=== PATIENT | male | born 1985 | race African-American/Black ===

== ENCOUNTER 2020-05-26 15:38 | Inpatient (IN) | payer OTHER ==
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
[2020-05-26 16:42] VITALS: BMI 20.8
--- NOTE | 2020-05-26 19:17 | HP ---
CIWA Score Nausea/Vomitin-Mild Nausea/No Vomiting Muscle Tremors: 4-Moderate,w/Arms Extend Anxiety: 3 Agitation: 3 Paroxysmal Sweats: 3 Orientation: 0-Oriented Tacttile Disturbances: 0-None Auditory Disturbances: 0-None Visual Disturbances: 0-None Headache: 0-None Present CIWA-Ar Total Score: 14 - Admission Criteria OASAS Guidelines: Admission for Medically Managed Detox: Requires at least one of the followin. CIWA greater than 12 2. Seizures within the past 24 hours 3. Delirium tremens within the past 24 hours 4. Hallucinations within the past 24 hours 5. Acute intervention needed for co occurring medical disorder 6. Acute intervention needed for co occurring psychiatric disorder 7. Severe withdrawal that cannot be handled at a lower level of care (continued vomiting, continued diarrhea, abnormal vital signs) requiring intravenous medication and/or fluids 8. Admission ROS [facility] Chief Complaint: Seeking admission to detox from alcohol Allergies/Adverse Reactions: Allergies Allergy/AdvReac Type Severity Reaction Status Date / Time No Known Allergies Allergy Verified 05/26/20 19:23 History of Present Illness: 34 years old male with a long history of alcohol dependence (since age 19 years) is seeking admission to detox. This is his first detoxification and first time at [facility]. Patient was referred from [facility] where he was treated for alcohol withdrawal seizures. He drinks 2 pints Vodka daily. He has medical history of asthma, denies psych. history and suicidal ideation at this time. He is unemployed, lives with his family and denies any legal issues. 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 Exam Limitations: No Limitations - Ebola screening Have you traveled outside of the country in the last 21 days: No Have you had contact with anyone from an Ebola affected area: No Have you been sick,other than usual withdrawal symptoms: No Do you have a fever: No - Review of Systems Constitutional: Chills, Loss of Appetite, Changes in sleep EENT: reports: No Symptoms Reported Respiratory: reports: No Symptoms reported Cardiac: reports: No Symptoms Reported GI: reports: Nausea, Poor Appetite, Abdominal cramping : reports: No Symptoms Reported Musculoskeletal: reports: No Symptoms Reported Integumentary: reports: Dryness, Flushing Neuro: reports: Tremors Endocrine: reports: No Symptoms Reported Hematology: reports: No Symptoms Reported Psychiatric: reports: Mood/Affect Appropiate, Orientated x3 Other Systems: Reviewed and Negative Patient History - Patient Medical History Hx Anemia: No Hx Asthma: Yes (Albuterol) Hx Chronic Obstructive Pulmonary Disease (COPD): No Hx Cancer: No Hx Cardiac Disorders: No Hx Congestive Heart Failure: No Hx Hypertension: No Hx Hypercholesterolemia: No Hx Pacemaker: No HX Cerebrovascular Accident: No Hx Seizures: Yes (Alcohol related seizures) Hx Diabetes: No Hx Gastrointestinal Disorders: No Hx Liver Disease: No Hx Genitourinary Disorders: No Hx Sexually Transmitted Disorders: No Hx Renal Disease (ESRD): No Hx Thyroid Disease: No Hx Human Immunodeficiency Virus (HIV): No (Negative 2020) Hx Hepatitis C: No Hx Depression: No Hx Suicide Attempt: No (Denies suicidal ideation at this time) Hx Bipolar Disorder: No Hx Schizophrenia: No - Patient Surgical History Past Surgical History: No - PPD History Previous Implant?: Yes Documented Results: Negative w/o proof Implanted On Prior [facility] Admission?: No PPD to be Administered?: Yes - Reproductive History Patient is a Female of Child Bearing Age (11 -55 yrs old): No (Male) - Smoking Cessation Smoking history: Former smoker Have you smoked in the past 12 months: No Hx Chewing Tobacco Use: No Initiated information on smoking cessation: No - Substance & Tx. History Hx Alcohol Use: Yes Hx Substance Use: No Substance Use Type: Alcohol Hx Substance Use Treatment: No - Substances abused Alcohol Substance route: Oral Frequency: Daily Amount used: 2 pints Vodka Age of first use: 19 Date of last use: 05/25/20 Admission Physical Exam BHS - Vital Signs Vital Signs: Vital Signs - 24 hr 05/26/20 16:41 Temperature 97.9 F Pulse Rate 76 Respiratory 18 Rate Blood Pressure 165/101 H - Physical General Appearance: Yes: Moderate Distress, Tremorous, Anxious HEENTM: Yes: Within Normal Limits Respiratory: Yes: Lungs Clear, Normal Breath Sounds, No Respiratory Distress Neck: Yes: Within Normal Limits Breast: Yes: Breast Exam Deferred Cardiology: Yes: Regular Rhythm, Regular Rate, Other (Elevated B/P without diagnosis of hypertension- B/P165/101) Abdominal: Yes: Normal Bowel Sounds Genitourinary: Yes: Within Normal Limits Back: Yes: Normal Inspection Musculoskeletal: Yes: Within Normal Limits Extremities: Yes: Tremors Neurological: Yes: Within Normal Limits, Alert, Normal Mood/Affect Integumentary: Yes: Within Normal Limits Lymphatic: Yes: Within Normal Limits - Diagnostic (1) Alcohol dependence, uncomplicated Current Visit: Yes Status: Acute (2) Alcohol related seizure Current Visit: Yes Status: Chronic (3) Asthma Current Visit: Yes Status: Chronic Qualifiers: Asthma severity: mild Asthma persistence: intermittent (4) Elevated blood pressure reading without diagnosis of hypertension Current Visit: Yes Status: Acute Cleared for Admission S - Detox or Rehab [facility] Level of Care: Medically Managed Detox Regimen/Protocol: Librium Claeared for Rehab Admission: No Breathalyzer - Breathalyzer Breathalyzer: 0.052 Urine Drug Screen - Test Device Lot number: [id number] Expiration date: 12/04/21 - Control Is test valid?: Yes - Results Drug screen NEGATIVE: No Urine drug screen results: BZO-Benzodiazepines Inpatient Rehab Admission - Rehab Decision to Admit Inpatient rehab admission?: No
[2020-05-26] MEDS ORDERED: MENTHOL/PHENOL 1 EACH UD MM PRN (19:40)
[2020-05-26] MEDS ORDERED: BISMUTH SUBSALICYLATE 524 MG/30 ML UD PO PRN (19:40)
[2020-05-26] MEDS ORDERED: ACETAMINOPHEN 325 MG TABLET (FP) PO PRN ×2 (19:40)
[2020-05-26] MEDS ORDERED: chlordiazePOXIDE HCL 25 MG CAPSULE PO PRN (19:40)
[2020-05-26] MEDS ORDERED: IBUPROFEN 400 MG TABLET (FP) PO PRN (19:40)
[2020-05-26] MEDS ORDERED: MAGNESIUM HYDROX 2400MG/30ML ORAL SUSPENSION 30 ML CUP PO PRN (19:40)
[2020-05-26] MEDS ORDERED: MAG HYDROX/AL HYDROX/SIMETH 30 ML UNIT-DOSE CUP PO PRN (19:40)
[2020-05-26] MEDS ORDERED: hydrOXYzine PAMOATE 25 MG CAPSULE (FP) PO PRN (19:40)
[2020-05-26] MEDS ORDERED: METHOCARBAMOL 500 MG TABLET PO PRN (19:40)
[2020-05-26] MEDS ORDERED: MAGNESIUM CITRATE 300 ML BOTTLE PO PRN (19:40)
[2020-05-26] MEDS ORDERED: ONDANSETRON *ODT* 4 MG TABLET SL PRN (19:40)
--- OUTSIDE RECORDS SUMMARY | 2020-05-26 21:17 | XMS ---
:1985 Author Organization [facility] Support Name Relationship Address Phone UE Unavailable Unavailable Unavailable [employer] [address] [place] [address] [id number] [phone] [place] [address] Re-disclosure Warning The records that you are about to access may contain information from federally- assisted alcohol or drug abuse programs. If such information is present, then the following federally mandated warning applies: This information has been disclosed to you from records protected by federal confidentiality rules (42 CFR part 2). The federal rules prohibit you from making any further disclosure of this information unless further disclosure is expressly permitted by the written consent of the person to whom it pertains or as otherwise permitted by 42 CFR part 2. A general authorization for the release of medical or other information is NOT sufficient for this purpose. The Federal rules restrict any use of the information to criminally investigate or prosecute any alcohol or drug abuse patient.The records that you are about to access may contain highly sensitive health information, the redisclosure of which is protected by Article 27-F of the [facility] Public Health law. If you continue you may haveaccess to information: Regarding HIV / AIDS; Provided by facilities licensed or operated by the [facility] Office of Mental Health; or Provided by the [facility] Office for People With Developmental Disabilities. If such information is present, then the following [facility] mandated warning applies: This information has been disclosed to you from confidential records which are protected by state law. State law prohibits you from making any further disclosure of this information without the specific written consent of the person to whom it pertains, or as otherwise permitted by law. Any unauthorized further disclosure in violation of state law may result in a fine or intermediate sentence or both. A general authorization for the release of medical or other information is NOT sufficient authorization for further disclosure. Insurance Providers Payer name Policy type Policy ID Covered Covered alliance party's Policy P luiza / Coverage alliance party ID relationship to [employer] type rutledge BEACON [id number] SP [id number] JOHNNY
[2020-05-26] MEDS: THIAMINE HCL 100 MG TABLET (FP) PO SCH (22:15)
[2020-05-26] MEDS: chlordiazePOXIDE HCL 25 MG CAPSULE PO SCH (22:16)
[2020-05-26] MEDS: MELATONIN 5 MG TABLETS PO SCH (22:16)
[2020-05-27] MEDS: chlordiazePOXIDE HCL 25 MG CAPSULE PO SCH ×4 (05:40→22:03)
[2020-05-27] MEDS ORDERED: FOLIC ACID 1 MG TABLET (FP) PO SCH (10:00)
[2020-05-27] MEDS: PRENATAL VITAMINS W/ FOLIC ACID TABLET (FP) PO SCH (10:01)
--- NOTE | 2020-05-27 10:14 | EKG ---
Test Reason : Blood Pressure : / mmHG Vent. Rate : 068 BPM Atrial Rate : 068 BPM P-R Int : 134 ms QRS Dur : 076 ms QT Int : 438 ms P-R-T Axes : 037 070 056 degrees QTc Int : 465 ms NORMAL SINUS RHYTHM WITH SINUS ARRHYTHMIA NORMAL ECG NO PREVIOUS ECGS AVAILABLE Confirmed by MD Faviola, Andrea ([id number]) on 05/27/2020 10:14:04 AM Referred By: Confirmed By:Andrea Salmeron MD
[2020-05-27 10:49] LABS: HEMATOCRIT 41.7 % (35.4-49); MCH 32.8 pg (25.7-33.7); MCHC 33.6 g/dl (32.0-35.9); MEAN CELL VOLUME 97.7 fl (80-96); MEAN PLT VOLUME 8.2 fl (7.5-11.1); PLATELET COUNT 271 K/MM3 (134-434); RBC 4.27 M/mm3 (4.00-5.60); RDW 12.5 % (11.9-15.9)
[2020-05-27 10:55] LABS: ALBUMIN 3.7 g/dl (3.4-5.0); BLOOD UREA NITROGEN 12.1 mg/dL (7-18); CALCIUM 9.2 mg/dL (8.5-10.1); CREATININE 0.7 mg/dL (0.55-1.3); POTASSIUM 3.9 mmol/L (3.5-5.1); TOT PROT 7.1 g/dl (6.4-8.2)
--- NOTE | 2020-05-27 12:14 | PN ---
S CIWA - CIWA Score Nausea/Vomitin-No Nausea/No Vomiting Muscle Tremors: 2 Anxiety: 2 Agitation: 2 Paroxysmal Sweats: 2 Orientation: 0-Oriented Tacttile Disturbances: 0-None Auditory Disturbances: 0-None Visual Disturbances: 0-None Headache: 0-None Present CIWA-Ar Total Score: 8 BHS Progress Note (SOAP) Subjective: restless sweats shakes interrupted sleep Objective: 05/27/20 12:13 Vital Signs Temp 98.6 F 05/27/20 05:30 Pulse 76 05/27/20 05:30 Resp 20 05/27/20 05:30 BP 157/101 H 05/27/20 05:30 Pulse Ox 95 05/27/20 05:30 Laboratory Tests 05/26/20 05/27/20 05/27/20 07:00 07:00 07:15 WBC 5.0 RBC 4.27 Hgb 14.0 Hct 41.7 MCV 97.7 H MCH 32.8 MCHC 33.6 RDW 12.5 Plt Count 271 MPV 8.2 Sodium 139 Potassium 3.9 Chloride 102 Carbon Dioxide 28 Anion Gap 8 BUN 12.1 Creatinine 0.7 Est GFR (CKD-EPI)AfAm 144.72 Est GFR (CKD-EPI)NonAf 124.87 Random Glucose 78 Calcium 9.2 Total Bilirubin 1.0 AST 69 H ALT 47 Alkaline Phosphatase 113 Total Protein 7.1 Albumin 3.7 Syphilis Serology Non-reactive labs noted aaox3 ambulating no acute distress Assessment: 05/27/20 12:14 withdrawals Plan: continue detox increase fluids
[2020-05-27] MEDS: THIAMINE HCL 100 MG TABLET (FP) PO SCH (22:03)
[2020-05-27] MEDS: MELATONIN 5 MG TABLETS PO SCH (22:04)
[2020-05-28] MEDS: chlordiazePOXIDE HCL 25 MG CAPSULE PO SCH ×4 (05:44→22:08)
[2020-05-28] MEDS: PRENATAL VITAMINS W/ FOLIC ACID TABLET (FP) PO SCH (10:12)
--- NOTE | 2020-05-28 12:25 | PN ---
S CIWA - CIWA Score Nausea/Vomitin-No Nausea/No Vomiting Muscle Tremors: 2 Anxiety: 1-Mildly Anxious Agitation: 2 Paroxysmal Sweats: 1-Minimal Palms Moist Orientation: 0-Oriented Tacttile Disturbances: 0-None Auditory Disturbances: 0-None Visual Disturbances: 0-None Headache: 0-None Present CIWA-Ar Total Score: 6 BHS Progress Note (SOAP) Subjective: sweats restless body aches Objective: 05/28/20 12:23 Vital Signs Temperature 97.8 F 05/28/20 09:01 Pulse Rate 87 05/28/20 09:01 Respiratory Rate 18 05/28/20 09:01 Blood Pressure 158/94 05/28/20 09:01 O2 Sat by Pulse Oximetry (%) 96 05/28/20 09:01 Laboratory Tests 05/26/20 05/26/20 05/27/20 07:00 20:30 07:00 WBC RBC Hgb Hct MCV MCH MCHC RDW Plt Count MPV Sodium 139 Potassium 3.9 Chloride 102 Carbon Dioxide 28 Anion Gap 8 BUN 12.1 Creatinine 0.7 Est GFR (CKD-EPI)AfAm 144.72 Est GFR (CKD-EPI)NonAf 124.87 Random Glucose 78 Calcium 9.2 Total Bilirubin 1.0 AST 69 H ALT 47 Alkaline Phosphatase 113 Total Protein 7.1 Albumin 3.7 Syphilis Serology Non-reactive COVID-19 (STEPHANIE) Not detected 05/27/20 07:15 WBC 5.0 RBC 4.27 Hgb 14.0 Hct 41.7 MCV 97.7 H MCH 32.8 MCHC 33.6 RDW 12.5 Plt Count 271 MPV 8.2 Sodium Potassium Chloride Carbon Dioxide Anion Gap BUN Creatinine Est GFR (CKD-EPI)AfAm Est GFR (CKD-EPI)NonAf Random Glucose Calcium Total Bilirubin AST ALT Alkaline Phosphatase Total Protein Albumin Syphilis Serology COVID-19 (STEPHANIE) labs noted aaox3 ambulating no acute distress moderately high BP noted; pt denies h/o HTN clonidine 0.1mg ordered Assessment: 05/28/20 12:24 withdrawals Plan: continue detox clonidine 0.1mg bid with parameters ordered
[2020-05-28] MEDS: cloNIDine HCL 0.1 MG TABLET PO SCH ×2 (12:57→22:09)
[2020-05-28] MEDS: MELATONIN 5 MG TABLETS PO SCH (22:09)
[2020-05-28] MEDS: THIAMINE HCL 100 MG TABLET (FP) PO SCH (22:09)
[2020-05-29] MEDS ORDERED: chlordiazePOXIDE HCL 10 MG CAPSULE PO PRN
[2020-05-29] MEDS: chlordiazePOXIDE HCL 10 MG CAPSULE PO SCH ×4 (05:35→22:07)
[2020-05-29] MEDS: ALBUTEROL SO4 HFA INHALER IH PRN ×2 (06:03→18:00)
[2020-05-29] MEDS: PRENATAL VITAMINS W/ FOLIC ACID TABLET (FP) PO SCH (10:04)
[2020-05-29] MEDS: cloNIDine HCL 0.1 MG TABLET PO SCH ×2 (10:04→22:07)
--- NOTE | 2020-05-29 12:43 | PN ---
S CIWA - CIWA Score Nausea/Vomitin-No Nausea/No Vomiting Muscle Tremors: 2 Anxiety: 1-Mildly Anxious Agitation: 2 Paroxysmal Sweats: 1-Minimal Palms Moist Orientation: 0-Oriented Tacttile Disturbances: 0-None Auditory Disturbances: 0-None Visual Disturbances: 0-None Headache: 0-None Present CIWA-Ar Total Score: 6 BHS Progress Note (SOAP) Subjective: sweats body aches Objective: 05/29/20 12:54 Vital Signs Temperature 98.0 F 05/29/20 08:34 Pulse Rate 79 05/29/20 08:34 Respiratory Rate 18 05/29/20 08:34 Blood Pressure 129/76 05/29/20 08:34 O2 Sat by Pulse Oximetry (%) 99 05/29/20 05:25 aaox3 ambulating no acute distress Assessment: 05/29/20 12:54 withdrawals Plan: continue detox
[2020-05-29] MEDS: THIAMINE HCL 100 MG TABLET (FP) PO SCH (22:07)
[2020-05-29] MEDS: MELATONIN 5 MG TABLETS PO SCH (22:08)
[2020-05-30] MEDS: chlordiazePOXIDE HCL 10 MG CAPSULE PO SCH ×2 (05:44→17:49)
[2020-05-30] MEDS: PRENATAL VITAMINS W/ FOLIC ACID TABLET (FP) PO SCH (10:06)
[2020-05-30] MEDS: cloNIDine HCL 0.1 MG TABLET PO SCH ×2 (10:06→22:20)
--- NOTE | 2020-05-30 10:44 | PN ---
S CIWA - CIWA Score Nausea/Vomitin-No Nausea/No Vomiting Muscle Tremors: 2 Anxiety: 1-Mildly Anxious Agitation: 1-Slight > Activity Paroxysmal Sweats: No Perspiration Orientation: 0-Oriented Tacttile Disturbances: 0-None Auditory Disturbances: 0-None Visual Disturbances: 0-None Headache: 0-None Present CIWA-Ar Total Score: 4 BHS Progress Note (SOAP) Subjective: feeling better restless Objective: 05/30/20 10:43 Vital Signs Temperature 97.5 F L 05/30/20 08:38 Pulse Rate 63 05/30/20 08:38 Respiratory Rate 16 05/30/20 08:38 Blood Pressure 124/72 05/30/20 08:38 O2 Sat by Pulse Oximetry (%) 100 05/30/20 08:38 Laboratory Tests 05/26/20 05/26/20 05/27/20 07:00 20:30 07:00 WBC RBC Hgb Hct MCV MCH MCHC RDW Plt Count MPV Sodium 139 Potassium 3.9 Chloride 102 Carbon Dioxide 28 Anion Gap 8 BUN 12.1 Creatinine 0.7 Est GFR (CKD-EPI)AfAm 144.72 Est GFR (CKD-EPI)NonAf 124.87 Random Glucose 78 Calcium 9.2 Total Bilirubin 1.0 AST 69 H ALT 47 Alkaline Phosphatase 113 Total Protein 7.1 Albumin 3.7 Syphilis Serology Non-reactive COVID-19 (STEPHANIE) Not detected 05/27/20 07:15 WBC 5.0 RBC 4.27 Hgb 14.0 Hct 41.7 MCV 97.7 H MCH 32.8 MCHC 33.6 RDW 12.5 Plt Count 271 MPV 8.2 Sodium Potassium Chloride Carbon Dioxide Anion Gap BUN Creatinine Est GFR (CKD-EPI)AfAm Est GFR (CKD-EPI)NonAf Random Glucose Calcium Total Bilirubin AST ALT Alkaline Phosphatase Total Protein Albumin Syphilis Serology COVID-19 (STEPHANIE) aaox3 ambulating no acute distress Assessment: 05/30/20 10:43 withdrawals Plan: continue detox d/c in am
[2020-05-30] MEDS: ALBUTEROL SO4 HFA INHALER IH PRN (13:34)
[2020-05-30] MEDS: MELATONIN 5 MG TABLETS PO SCH (22:20)
[2020-05-30] MEDS: THIAMINE HCL 100 MG TABLET (FP) PO SCH (22:20)
[2020-05-31] MEDS: ALBUTEROL SO4 HFA INHALER IH PRN (02:01)
[2020-05-31] MEDS ORDERED: chlordiazePOXIDE HCL 10 MG CAPSULE PO ONE (05:00)
[2020-05-31 11:38] VITALS: BP 117/69; PULSE 63; TEMP 97.3
--- NOTE | 2020-05-31 17:34 | DS ---
[facility] Detox Discharge Summary Admission Date: 05/26/20 Discharge Date: 05/31/20 - History Present History: Alcohol Dependence Additional Comments: Patient returning home and will attend local NA/ AA / Outpatient Support Group Program that he elects to seek out on his own. Patient denies known history of Hypertension. Patient's Blood Pressure stable at time of Discharge form Detox Unit. Patient advised to follow-up with [facility] ([place], [place]) after Discharge from Detox for general medical assessment and for elevated blood pressure noted on Detox admission laboratory assessment. Patient verbalized understanding of recommendation. Patient was Discharged from Detox Unit in stable medical condition. Pertinent Past History: Asthma, Elevated Blood Pressure Reading without Diagnosis of Hypertension, History of Seizures. - Physical Exam Results Vital Signs: Vital Signs Temperature 97.3 F L 05/31/20 08:41 Pulse Rate 63 05/31/20 08:41 Respiratory Rate 18 05/31/20 08:41 Blood Pressure 117/69 05/31/20 08:41 O2 Sat by Pulse Oximetry (%) 100 05/31/20 08:41 Pertinent Admission Physical Exam Findings: WITHDRAWAL SYMPTOMS. Laboratory Tests 05/26/20 05/26/20 05/27/20 07:00 20:30 07:00 WBC RBC Hgb Hct MCV MCH MCHC RDW Plt Count MPV Sodium 139 Potassium 3.9 Chloride 102 Carbon Dioxide 28 Anion Gap 8 BUN 12.1 Creatinine 0.7 Est GFR (CKD-EPI)AfAm 144.72 Est GFR (CKD-EPI)NonAf 124.87 Random Glucose 78 Calcium 9.2 Total Bilirubin 1.0 AST 69 H ALT 47 Alkaline Phosphatase 113 Total Protein 7.1 Albumin 3.7 Syphilis Serology Non-reactive COVID-19 (STEPHANIE) Not detected 05/27/20 07:15 WBC 5.0 RBC 4.27 Hgb 14.0 Hct 41.7 MCV 97.7 H MCH 32.8 MCHC 33.6 RDW 12.5 Plt Count 271 MPV 8.2 Sodium Potassium Chloride Carbon Dioxide Anion Gap BUN Creatinine Est GFR (CKD-EPI)AfAm Est GFR (CKD-EPI)NonAf Random Glucose Calcium Total Bilirubin AST ALT Alkaline Phosphatase Total Protein Albumin Syphilis Serology COVID-19 (STEPHANIE) Lab Results noted. - Treatment Hospital Course: Detox Protocol Followed, Detoxed Safely, Responded well, Discharged Condition Good Patient has Accepted a Rehab Referral to: Patient returning home, will seek out local support group on his own. - Medication Discharge Medications: Ambulatory Orders Albuterol Sulfate Inhaler - [Ventolin Hfa Inhaler -] 2 inh PO Q6H 05/26/20 - Diagnosis (1) Alcohol dependence, uncomplicated Status: Acute (2) Elevated blood pressure reading without diagnosis of hypertension Status: Acute (3) Alcohol related seizure Status: Chronic (4) Asthma Status: Chronic Qualifiers: Asthma severity: mild Asthma persistence: intermittent Asthma complication type: uncomplicated Qualified Code(s): J45.20 - Mild intermittent asthma, uncomplicated - AMA Did Patient Leave Against Medical Advice: No
== END 2020-05-31 10:11 | disposition home or self-care (01) | DRG 775 ==
LOC: YASAS 15:38 → Y6N 20:18
PROVIDERS: ADMIT Allergy & Immunology; ATTEND Allergy & Immunology
PROC: HZ2ZZZZ Detoxification Services for Substance Abuse Treatment (ICD-10-PCS; principal; 2020-05-26)
DX: F10.230 Alcohol dependence with withdrawal, uncomplicated (principal); F17.211 Nicotine dependence, cigarettes, in remission; J45.20 Mild intermittent asthma, uncomplicated; G40.509 Epileptic seizures related to external causes, not intractable, without status epilepticus; R03.0 Elevated blood-pressure reading, without diagnosis of hypertension; Z56.0 Unemployment, unspecified
CPT/HCPCS: 36415; 80053; 85027; 86780; 93005; 93010; J0735; U0003

== ENCOUNTER 2021-04-24 12:24 | Inpatient (IN) | payer OTHER ==
[2021-04-24 13:33] VITALS: BMI 20.7
[2021-04-24] MEDS ORDERED: ACETAMINOPHEN 325 MG TABLET (FP) PO PRN ×2 (15:32)
[2021-04-24] MEDS ORDERED: MAG HYDROX/AL HYDROX/SIMETH 30 ML UNIT-DOSE CUP PO PRN (15:32)
[2021-04-24] MEDS ORDERED: chlordiazePOXIDE HCL 25 MG CAPSULE PO PRN (15:32)
[2021-04-24] MEDS ORDERED: MAGNESIUM CITRATE 300 ML BOTTLE PO PRN (15:32)
[2021-04-24] MEDS ORDERED: ONDANSETRON *ODT* 4 MG TABLET SL PRN (15:32)
[2021-04-24] MEDS ORDERED: NICOTINE 10 MG CARTRIDGE (INHALER) IH PRN (15:32)
[2021-04-24] MEDS ORDERED: MAGNESIUM HYDROX 2400MG/30ML ORAL SUSPENSION 30 ML CUP PO PRN (15:32)
[2021-04-24] MEDS ORDERED: MENTHOL/PHENOL 1 EACH UD MM PRN (15:32)
[2021-04-24] MEDS ORDERED: BISMUTH SUBSALICYLATE 262 MG/15 ML BTL PO PRN (15:32)
[2021-04-24] MEDS ORDERED: IBUPROFEN 400 MG TABLET (FP) PO PRN (15:32)
[2021-04-24] MEDS ORDERED: LORazepam 1 MG TABLET PO PRN (15:44)
[2021-04-24] MEDS ORDERED: ALBUTEROL SO4 HFA INHALER IH SCH (15:45)
[2021-04-24] MEDS ORDERED: chlordiazePOXIDE HCL 25 MG CAPSULE PO SCH (17:00)
[2021-04-24] MEDS: LORazepam 2 MG TABLET PO SCH ×2 (18:32→22:04)
[2021-04-24] MEDS: MELATONIN 5 MG TABLETS PO SCH (22:04)
[2021-04-24] MEDS: THIAMINE HCL 100 MG TABLET (FP) PO SCH (22:04)
[2021-04-25] MEDS: ALBUTEROL SO4 HFA INHALER IH PRN ×2 (03:16→18:04)
[2021-04-25] MEDS: LORazepam 2 MG TABLET PO SCH ×4 (06:28→22:13)
[2021-04-25] MEDS: PRENATAL VITAMINS W/ FOLIC ACID TABLET (FP) PO SCH (10:22)
[2021-04-25 13:19] LABS: HEMATOCRIT 41.1 % (35.4-49); MCH 32.7 pg (25.7-33.7); MCHC 34.2 g/dl (32.0-35.9); MEAN CELL VOLUME 95.5 fl (80-96); MEAN PLT VOLUME 8.1 fl (7.5-11.1); PLATELET COUNT 316 10^3/uL (134-434); RDW 12.6 % (11.9-15.9); WHITE BLOOD COUNT 5.5 K/mm3 (4.0-10.0)
[2021-04-25 13:20] LABS: CALCIUM 9.3 mg/dL (8.5-10.1)
[2021-04-25 13:21] LABS: ALBUMIN 4.2 g/dl (3.4-5.0); BLOOD UREA NITROGEN 10.5 mg/dL (7-18)
[2021-04-25 13:25] LABS: BILIRUBIN,TOTAL 0.9 mg/dL (0.2-1); TOT PROT 8.6 g/dl (6.4-8.2)
[2021-04-25] MEDS: MELATONIN 5 MG TABLETS PO SCH (22:14)
[2021-04-25] MEDS: THIAMINE HCL 100 MG TABLET (FP) PO SCH (22:14)
[2021-04-25] MEDS: METHOCARBAMOL 500 MG TABLET PO PRN (22:14)
[2021-04-26] MEDS ORDERED: chlordiazePOXIDE HCL 25 MG CAPSULE PO SCH (05:00)
[2021-04-26] MEDS: LORazepam 1 MG TABLET PO SCH ×4 (05:55→22:16)
[2021-04-26] MEDS: PRENATAL VITAMINS W/ FOLIC ACID TABLET (FP) PO SCH (10:16)
[2021-04-26] MEDS: cloNIDine HCL 0.1 MG TABLET PO PRN ×2 (17:24→22:17)
[2021-04-26] MEDS: THIAMINE HCL 100 MG TABLET (FP) PO SCH (22:16)
[2021-04-26] MEDS: MELATONIN 5 MG TABLETS PO SCH (22:16)
[2021-04-27] MEDS ORDERED: chlordiazePOXIDE HCL 10 MG CAPSULE PO PRN
[2021-04-27] MEDS ORDERED: LORazepam 0.5 MG TABLET PO PRN
[2021-04-27] MEDS ORDERED: chlordiazePOXIDE HCL 10 MG CAPSULE PO SCH (05:00)
[2021-04-27] MEDS: LORazepam 0.5 MG TABLET PO SCH ×4 (05:38→22:12)
[2021-04-27] MEDS: PRENATAL VITAMINS W/ FOLIC ACID TABLET (FP) PO SCH (10:05)
[2021-04-27 14:04] LABS: EPI CELLS 3 /uL (0-25.1); HYALINE CASTS 2 /uL (0-3.1); URINE APPEARANCE CLEAR; URINE BACTERIA 53 /uL (0-1359); URINE BILIRUBIN NEGATIVE (NEGATIVE); URINE COLOR DK YELLOW; URINE GLUCOSE (UA) NEGATIVE (NEGATIVE); URINE KETONE TRACE (NEGATIVE); URINE LEUK ESTERASE TRACE (NEGATIVE); URINE NITRITE NEGATIVE (NEGATIVE); URINE PROTEIN NEGATIVE (NEGATIVE); URINE RBC 3 /uL (0-23.9); URINE WBC 14 /uL (0-25.8)
[2021-04-27] MEDS: THIAMINE HCL 100 MG TABLET (FP) PO SCH (22:11)
[2021-04-27] MEDS: cloNIDine HCL 0.1 MG TABLET PO PRN (22:12)
[2021-04-27] MEDS: MELATONIN 5 MG TABLETS PO SCH (22:12)
[2021-04-28] MEDS: METHOCARBAMOL 500 MG TABLET PO PRN (01:54)
[2021-04-28] MEDS ORDERED: LORazepam 0.5 MG TABLET PO ONE (05:00)
[2021-04-28] MEDS ORDERED: chlordiazePOXIDE HCL 10 MG CAPSULE PO SCH (05:00)
[2021-04-28] MEDS: ALBUTEROL SO4 HFA INHALER IH PRN (09:24)
[2021-04-28 10:00] VITALS: BP 121/85; PULSE 89; TEMP 96.6
[2021-04-28] MEDS: PRENATAL VITAMINS W/ FOLIC ACID TABLET (FP) PO SCH (10:22)
[2021-04-29] MEDS ORDERED: chlordiazePOXIDE HCL 10 MG CAPSULE PO ONE (05:00)
== END 2021-04-28 11:00 | disposition home or self-care (01) | DRG 775 ==
LOC: YASAS 12:24 → Y3N 17:07
PROVIDERS: ADMIT Allergy & Immunology; ATTEND Allergy & Immunology
PROC: HZ2ZZZZ Detoxification Services for Substance Abuse Treatment (ICD-10-PCS; principal; 2021-04-24)
DX: F10.230 Alcohol dependence with withdrawal, uncomplicated (principal); F17.210 Nicotine dependence, cigarettes, uncomplicated; J45.20 Mild intermittent asthma, uncomplicated; R56.9 Unspecified convulsions; R74.01 Elevation of levels of liver transaminase levels; R03.0 Elevated blood-pressure reading, without diagnosis of hypertension
CPT/HCPCS: 36415; 80053; 81003; 85027; 86780; 93005; 93010; C9803; J0735; U0003; U0005

== ENCOUNTER 2022-01-21 11:40 | Inpatient (IN) | payer OTHER ==
[2022-01-21 12:07] VITALS: BMI 19.6
[2022-01-21] MEDS ORDERED: BISMUTH SUBSALICYLATE 524 MG/30 ML PO PRN (12:51)
[2022-01-21] MEDS ORDERED: LORazepam 1 MG TABLET PO PRN (12:51)
[2022-01-21] MEDS ORDERED: ACETAMINOPHEN 325 MG TABLET (FP) PO PRN ×2 (12:51)
[2022-01-21] MEDS ORDERED: LOPERAMIDE HCL 2 MG CAPSULE PO PRN (12:51)
[2022-01-21] MEDS ORDERED: IBUPROFEN 400 MG TABLET (FP) PO PRN (12:51)
[2022-01-21] MEDS ORDERED: BENZOCAINE/MENTHOL (CHLORASEPTIC ) LOZENGE MM PRN (12:51)
[2022-01-21] MEDS ORDERED: DICYCLOMINE HCL 10 MG CAPSULE PO PRN (12:51)
[2022-01-21] MEDS ORDERED: ONDANSETRON *ODT* 4 MG TABLET SL PRN (12:51)
[2022-01-21] MEDS ORDERED: NICOTINE 10 MG CARTRIDGE (INHALER) IH PRN (12:51)
[2022-01-21] MEDS ORDERED: MAGNESIUM HYDROX 2400MG/30ML ORAL SUSPENSION 30 ML CUP PO PRN (12:51)
[2022-01-21] MEDS ORDERED: MAG HYDROX/AL HYDROX/SIMETH 30 ML UNIT-DOSE CUP PO PRN (12:51)
[2022-01-21] MEDS ORDERED: MAGNESIUM CITRATE 300 ML BOTTLE PO PRN (12:51)
[2022-01-21] MEDS: hydrOXYzine PAMOATE 25 MG CAPSULE (FP) PO SCH ×3 (14:12→23:17)
[2022-01-21] MEDS: PRENATAL VITAMINS W/ FOLIC ACID TABLET (FP) PO SCH (14:13)
[2022-01-21] MEDS: LORazepam 2 MG TABLET PO SCH ×2 (18:08→23:19)
[2022-01-21] MEDS: THIAMINE HCL 100 MG TABLET (FP) PO SCH (23:17)
[2022-01-21] MEDS: MELATONIN 5 MG TABLETS PO SCH (23:17)
[2022-01-22] MEDS: hydrOXYzine PAMOATE 25 MG CAPSULE (FP) PO SCH ×5 (05:33→22:26)
[2022-01-22] MEDS: LORazepam 2 MG TABLET PO SCH ×4 (05:33→22:26)
[2022-01-22] MEDS: PRENATAL VITAMINS W/ FOLIC ACID TABLET (FP) PO SCH (10:21)
[2022-01-22 10:23] LABS: HEMATOCRIT 40.9 % (35.4-49); HEMOGLOBIN 13.6 GM/dL (11.7-16.9); MCH 31.8 pg (25.7-33.7); MCHC 33.1 g/dl (32.0-35.9); MEAN CELL VOLUME 96.1 fl (80-96); MEAN PLT VOLUME 8.6 fl (7.5-11.1); PLATELET COUNT 192 10^3/uL (134-434); RBC 4.26 M/mm3 (4.00-5.60); RDW 12.7 % (11.9-15.9); WHITE BLOOD COUNT 3.7 K/mm3 (4.0-10.0)
[2022-01-22 10:29] LABS: CALCIUM 9.4 mg/dL (8.5-10.1)
[2022-01-22 10:30] LABS: ALBUMIN 3.6 g/dl (3.4-5.0); BLOOD UREA NITROGEN 11.9 mg/dL (7-18)
[2022-01-22 10:32] LABS: CREATININE 0.7 mg/dL (0.55-1.3)
[2022-01-22 10:33] LABS: TOT PROT 6.5 g/dl (6.4-8.2)
[2022-01-22] MEDS: THIAMINE HCL 100 MG TABLET (FP) PO SCH (22:26)
[2022-01-22] MEDS: METHOCARBAMOL 500 MG TABLET PO PRN (22:26)
[2022-01-22] MEDS: MELATONIN 5 MG TABLETS PO SCH (22:26)
[2022-01-23] MEDS: hydrOXYzine PAMOATE 25 MG CAPSULE (FP) PO SCH ×5 (05:40→23:13)
[2022-01-23] MEDS: LORazepam 1 MG TABLET PO SCH ×4 (05:40→23:13)
[2022-01-23] MEDS: PRENATAL VITAMINS W/ FOLIC ACID TABLET (FP) PO SCH (10:37)
[2022-01-23] MEDS: METHOCARBAMOL 500 MG TABLET PO PRN (10:38)
[2022-01-23] MEDS: THIAMINE HCL 100 MG TABLET (FP) PO SCH (23:13)
[2022-01-23] MEDS: MELATONIN 5 MG TABLETS PO SCH (23:13)
[2022-01-24] MEDS ORDERED: LORazepam 0.5 MG TABLET PO PRN
[2022-01-24] MEDS: ALBUTEROL SO4 HFA INHALER IH PRN ×3 (03:54→22:42)
[2022-01-24] MEDS: hydrOXYzine PAMOATE 25 MG CAPSULE (FP) PO SCH ×5 (06:26→22:38)
[2022-01-24] MEDS: LORazepam 0.5 MG TABLET PO SCH ×4 (06:26→22:38)
[2022-01-24] MEDS: METHOCARBAMOL 500 MG TABLET PO PRN (10:41)
[2022-01-24] MEDS: PRENATAL VITAMINS W/ FOLIC ACID TABLET (FP) PO SCH (10:41)
[2022-01-24] MEDS: THIAMINE HCL 100 MG TABLET (FP) PO SCH (22:38)
[2022-01-24] MEDS: MELATONIN 5 MG TABLETS PO SCH (22:39)
[2022-01-25] MEDS ORDERED: LORazepam 0.5 MG TABLET PO ONE (05:00)
[2022-01-25] MEDS: hydrOXYzine PAMOATE 25 MG CAPSULE (FP) PO SCH (06:04)
[2022-01-25 09:22] VITALS: BP 125/77; PULSE 76; TEMP 97.3
== END 2022-01-25 09:40 | disposition home or self-care (01) | DRG 775 ==
LOC: YASAS 11:40 → Y6N 13:18
PROVIDERS: ADMIT Allergy & Immunology; ATTEND Surgery
PROC: HZ2ZZZZ Detoxification Services for Substance Abuse Treatment (ICD-10-PCS; principal; 2022-01-21)
DX: F10.230 Alcohol dependence with withdrawal, uncomplicated (principal); J45.20 Mild intermittent asthma, uncomplicated; R74.01 Elevation of levels of liver transaminase levels; Z86.69 Personal history of other diseases of the nervous system and sense organs
CPT/HCPCS: 36415; 80053; 85027; 86780; 87811; C9803-CS; U0003; U0005